=== PATIENT | female | born 1955 | race Two or more races ===

== ENCOUNTER 2021-04-02 14:26 | Inpatient (IN) | payer OTHER ==
[~2021-04-02] VITALS: Ht 167.6 cm; Wt 74.8 kg
[2021-04-02] MEDS ORDERED: DECADRON4 MG (15:13)
[2021-04-02] MEDS ORDERED: PERCOCET 10-321 EACH (15:13)
[2021-04-02] MEDS ORDERED: [UNRECOGNIZED DRUG - OTHER] (15:13)
[2021-04-03] MEDS ORDERED: GABAPENTIN100 M2 (16:09)
== END 2021-04-10 17:03 | disposition home or self-care (01) | DRG 600 ==
LOC: ER 14:26 → SURG 22:37 → SEC-K 22:37 → SURG 04-03 03:37
PROVIDERS: ADMIT Internal Medicine; ATTEND Internal Medicine
PROC: 0HB5XZZ Excision of Chest Skin, External Approach (ICD-10-PCS; principal; 2021-04-08)
DX: N61.0 Mastitis without abscess (principal); C78.00 Secondary malignant neoplasm of unspecified lung; C79.51 Secondary malignant neoplasm of bone; C79.31 Secondary malignant neoplasm of brain; L98.491 Non-pressure chronic ulcer of skin of other sites limited to breakdown of skin; E86.0 Dehydration; I10 Essential (primary) hypertension; E11.65 Type 2 diabetes mellitus with hyperglycemia; Z20.822 Contact with and (suspected) exposure to COVID-19; Z79.52 Long term (current) use of systemic steroids

== ENCOUNTER 2021-07-24 12:32 | Emergency (ER) | payer OTHER ==
[~2021-07-24] VITALS: Ht 167.6 cm; Wt 74.8 kg
[~2021-07-24 12:32] MED LIST: DECADRON4 MG; GABAPENTIN100 M2; PERCOCET 10-321 EACH; [UNRECOGNIZED DRUG - OTHER]
== END 2021-07-24 16:06 | disposition home or self-care (01) ==
LOC: ER 12:32
DX: J22 Unspecified acute lower respiratory infection (principal); I10 Essential (primary) hypertension; Z11.52 Encounter for screening for COVID-19

== ENCOUNTER 2021-08-02 23:46 | Emergency (ER) | payer OTHER ==
[~2021-08-02] VITALS: Ht 160 cm; Wt 90.7 kg
[2021-08-03] MEDS ORDERED: ORPHENADRINE C100 MG PO (03:31)
== END 2021-08-03 03:45 | disposition home or self-care (01) ==
LOC: ER 23:46
DX: S30.0XXA Contusion of lower back and pelvis, initial encounter (principal); S80.01XA Contusion of right knee, initial encounter; W18.39XA Other fall on same level, initial encounter; Y93.89 Activity, other specified; Y92.091 Bathroom in other non-institutional residence as the place of occurrence of the external cause; Y99.8 Other external cause status

== ENCOUNTER 2021-08-31 18:55 | Emergency (ER) | payer OTHER ==
[~2021-08-31] VITALS: Ht 160 cm; Wt 76.2 kg
[~2021-08-31 18:55] MED LIST changes: +ORPHENADRINE C100 MG PO
[2021-08-31] MEDS ORDERED: CEFDINIR300 MG PO (23:46)
== END 2021-09-01 02:28 | disposition home or self-care (01) ==
LOC: ER 18:55
DX: N39.0 Urinary tract infection, site not specified (principal); R42 Dizziness and giddiness; I10 Essential (primary) hypertension; E11.9 Type 2 diabetes mellitus without complications; Z79.4 Long term (current) use of insulin; C50.919 Malignant neoplasm of unspecified site of unspecified female breast; C79.31 Secondary malignant neoplasm of brain; Z88.6 Allergy status to analgesic agent